=== PATIENT | female | born 1985 | race Caucasian/White ===

== ENCOUNTER 2019-03-26 14:14 | Outpatient (CLI) | payer OTHER ==
--- NOTE | 2019-03-26 14:29 | RAD ---
EXAM: Chest PA and lateral: HISTORY: Weakness COMPARISON: none FINDINGS: Lung bur[place] are clear. Vascular markings are normal. Heart and mediastinum appear unremarkable. Osseous structures are unremarkable. IMPRESSION: Unremarkable chest
== END 2019-03-26 14:15 | disposition home or self-care (01) ==
LOC: SCSRAD 14:14
PROVIDERS: ATTEND Family Medicine
DX: R59.0 Localized enlarged lymph nodes (principal); R59.1 Generalized enlarged lymph nodes
CPT/HCPCS: 71046

== ENCOUNTER 2019-12-20 12:33 | Outpatient (CLI) | payer OTHER ==
--- NOTE | 2019-12-21 13:06 | MRI ---
MR CERVICAL SPINE WITHOUT CONTRAST INDICATION: 34-year-old female with spinal enthesopathy, chronic neck pain and stiffness TECHNIQUE: Multiplanar multisequence MR images were obtained of the cervical spine without contrast. COMPARISON: None FINDINGS: Posterior fossa: Within normal limits. Bone marrow signal intensity: Normal Spinal alignment: Normal. Craniocervical junction: Normal appearing. Prevertebral and perivertebral soft tissues: Visualized soft tissues appear within normal limits. Vertebral levels: C2-C3: No appreciable central canal or neuroforaminal narrowing. C3-4: No appreciable central canal or neuroforaminal narrowing. C4-5: No appreciable central canal or neuroforaminal narrowing. C5-C6: No appreciable central canal or neuroforaminal narrowing. C6-C7:, No appreciable central canal or neuroforaminal narrowing. C7-T1: No appreciable central canal or neuroforaminal narrowing. IMPRESSION: 1. No appreciable central canal or neuroforaminal narrowing.
--- NOTE | 2019-12-21 13:37 | MRI ---
MRI LUMBAR SPINE WITHOUT CONTRAST: 12/21/19 INDICATIONS: Spinal enthesopathy lumbar and cervical region. Back pain. FINDINGS: Lumbar vertebrae maintain normal height and alignment. Vertebral bodies exhibit normal signal. The di sc spaces are normally maintained and exhibit normal hydration with normal high T2 signal. L1-2: No significant disc bulge. No significant abnormality. L2-3: No significant disc bulge. No significant abnormality. L3-4: Very mild disc bulge abuts the anterior thecal sac. No central canal or foraminal stenosis. L4-5: Mild broad based disc bulge. This flattens the anterior thecal sac. There is mild facet arthros is. No significant central canal or foraminal stenosis. L5-S1: No significant disc bulge. Mild facet arthrosis. No central canal or foraminal stenosis. IMPRESSION: Unremarkable MRI of lumbar spine. Minimal disc bulge at L3-4 and L4-5 and mild facet arthrosis as genesis cribed above. POS: [facility]
== END 2019-12-20 12:34 | disposition home or self-care (01) ==
LOC: SCSMRI 12:33
PROVIDERS: ATTEND Chiropractor
DX: M46.03 Spinal enthesopathy, cervicothoracic region (principal); M46.07 Spinal enthesopathy, lumbosacral region; M51.36 Other intervertebral disc degeneration, lumbar region; M47.816 Spondylosis without myelopathy or radiculopathy, lumbar region
CPT/HCPCS: 72141; 72148

== ENCOUNTER 2020-06-26 08:56 | Outpatient (CLI) | payer OTHER ==
--- NOTE | 2020-06-26 10:27 | RAD ---
THORACIC SPINE 3 VIEWS: Date: 06/26/2020 INDICATION: Back pain and arthritis. COMPARISON: None. FINDINGS: There are twelve rib-bearing thoracic vertebra. There is minimal curvature of the thoracic spine to t he left at T4-5 and slightly to the right at T11-12. No congenital vertebral anomaly is evident. Vert ebral body heights and intervertebral disc spaces appear relatively well maintained. No acute fractur e is evident. Visualized lungs are clear. IMPRESSION: No acute osseous abnormality. Minimal curvature of the thoracolumbar spine. POS: [facility]
== END 2020-06-26 08:57 | disposition home or self-care (01) ==
LOC: SCSRAD 08:56
PROVIDERS: ATTEND Family Medicine
DX: M54.6 Pain in thoracic spine (principal); M43.9 Deforming dorsopathy, unspecified
CPT/HCPCS: 72072

== ENCOUNTER 2021-12-03 08:08 | Outpatient (CLI) | payer OTHER | END 2021-12-03 08:09 | disposition home or self-care (01) | LOC: SCSRAD 08:08 | PROVIDERS: ATTEND Internal Medicine Rheumatology | DX: M25.571 Pain in right ankle and joints of right foot (principal); M79.671 Pain in right foot ==

== ENCOUNTER 2022-04-05 14:49 | Outpatient (CLI) | payer OTHER | END 2022-04-05 14:50 | disposition home or self-care (01) | LOC: BICMAMMO 14:49 | PROVIDERS: ATTEND Obstetrics & Gynecology | DX: N63.21 Unspecified lump in the left breast, upper outer quadrant (principal) | CPT/HCPCS: G0279 ==